=== PATIENT | female | born 1990 | race Caucasian/White ===

== ENCOUNTER 2018-10-15 05:53 | Inpatient (IN) ==
[2018-10-15] MEDS ORDERED: ceFAZolin 2,000 MG in PREMIX 1 EACH IV ONE (06:07)
[2018-10-15] MEDS ORDERED: CITRIC ACID/SODIUM CITRATE 30 ML UDCUP PO ONE (06:07)
[2018-10-15] MEDS ORDERED: FAMOTIDINE 20 MG/2 ML VIAL IV ONE (06:07)
[2018-10-15] MEDS ORDERED: LACTATED RINGERS 1,000 ML IV SCH ×3 (06:30→20:30)
[2018-10-15 06:36] LABS: Basophils # 0.1 10*3/uL (0.0-0.2); Basophils % 0.3 % (0.0-0.8); Eosinophils # 0.5 10*3/uL (0.0-0.87); Eosinophils % 2.6 % (0.00-10.9); Hematocrit 38.9 VOL% (35.7-47.0); Hemoglobin 12.9 GM/DL (12.0-16.0); Immature Granulocytes % 0.7 %; Immature Granulocytes Absolute 0.14 #; Lymphocytes # 5.5 10*3/uL (1.4-4.0); Mean Corpuscular HGB Conc 33.2 GM/DL (32-36); Mean Corpuscular Hemoglobin 30 PG (27-34); Mean Platelet Volume 11.4 FL (9.6-12.0); Neutrophils # 13.1 10*3/uL (1.4-7.4); Neutrophils % 64.4 % (38.7-73.9); Platelet Count 334 T/CUMM (130-400); Red Blood Count 4.37 MC/CUMM (3.8-5.5); White Blood Count 20.3 T/CUMM (4-12)
[2018-10-15 06:58] LABS: Platelet Estimate Normal
[2018-10-15 06:59] LABS: Anisocytosis Slight
[2018-10-15] MEDS ORDERED: miSOPROStol 200 MCG TABLET ONE (08:27)
[2018-10-15] MEDS ORDERED: OXYTOCIN/LR 20 UNIT/1,000 ML BAG IV ONE ×2 (08:28→10:08)
[2018-10-15] MEDS ORDERED: CARBOPROST TROMETHAMINE 250 MCG/ML AMP IM ONE (08:28)
[2018-10-15] MEDS ORDERED: TRANEXAMIC ACID 1,000 MG/10 ML VIAL ONE (08:28)
[2018-10-15] MEDS ORDERED: METHYLERGONOVINE 0.2 MG/1 ML AMP ONE (08:28)
[2018-10-15] MEDS ORDERED: OXYTOCIN 10 UNIT/ML VIAL ONE (08:29)
[2018-10-15 09:47] LABS: Apearance,Urine CLEAR (Clear); Bilirubin,Urine Negative (Negative); Blood, Urine Negative (Negative); Glucose,Urine (UA) Negative (Negative); Ketones,Urine Negative (Negative); Mucus,Urine Occasional /LPF (Occasional); Nitrite,Urine Negative (Negative); Protein,Urine Negative; RBC,Urine <1 /HPF (0-4); Squamous Epithelial Cell,Urine Occasional /HPF (0-10); Urine Color Straw (Yellow); Urine Specific Gravity 1.008 (1.001-1.035); Urine Urobilinogen < 2.0 EU/DL (0.2-1.0); WBC,Urine <1 /HPF (0-6)
[2018-10-15 09:52] LABS: Cord Venous Blood HCO3 22.9 MMOL/L; Cord Venous Blood PCO2 49.4 MMHG; Cord Venous Blood PO2 21.9
[2018-10-15] MEDS ORDERED: RHO(D) IMMUNE GLOBULIN 300 MCG SYRINGE IM ONE (10:08)
[2018-10-15] MEDS ORDERED: MAGNESIUM HYDROXIDE SUSP 30 ML UDCUP PO PRN (10:08)
[2018-10-15] MEDS ORDERED: ACETAMINOPHEN 325 MG TABLET PO PRN (10:08)
[2018-10-15] MEDS ORDERED: SIMETHICONE CHEW 80 MG TABLET PO PRN (10:08)
[2018-10-15] MEDS ORDERED: ONDANSETRON 4 MG/2 ML VIAL IV PRN (10:08)
[2018-10-15] MEDS ORDERED: diphenhydrAMINE 50 MG/1 ML VIAL IV ONE (10:51)
[2018-10-15] MEDS ORDERED: MORPHINE 10 MG/10 ML VIAL ONE (11:23)
[2018-10-15] MEDS ORDERED: BUPIVACAINE SPINAL 0.75% 2 ML AMP SPINAL ONE (11:23)
[2018-10-15] MEDS ORDERED: ONDANSETRON 4 MG/2 ML VIAL ONE (11:23)
[2018-10-15] MEDS ORDERED: PHENYLEPHRINE 1 MG/10 ML SYRINGE IV ONE (11:23)
[2018-10-15] MEDS: NICOTINE 7 MG/24 HR PATCH TRANSDERM SCH (15:32)
[2018-10-15] MEDS: ceFAZolin 1,000 MG in SYRINGE 1 EACH IV SCH (16:45)
[2018-10-15] MEDS: IBUPROFEN 800 MG TABLET PO PRN (17:05)
[2018-10-15 18:02] LABS: Hematocrit 35.8 VOL% (35.7-47.0); Hemoglobin 11.8 GM/DL (12.0-16.0)
[2018-10-15] MEDS ORDERED: diphenhydrAMINE 50 MG/1 ML VIAL ONE (19:18)
[2018-10-15] MEDS ORDERED: diphenhydrAMINE 50 MG/1 ML VIAL IV PRN (19:18)
[2018-10-15] MEDS ORDERED: hydrOXYzine HCL 25 MG/1 ML VIAL IM PRN (19:19)
[2018-10-15] MEDS: DOCUSATE SODIUM 100 MG CAPSULE PO SCH (21:43)
[2018-10-16] MEDS: ceFAZolin 1,000 MG in SYRINGE 1 EACH IV SCH (00:38)
[2018-10-16 05:12] LABS: Basophils # 0.1 10*3/uL (0.0-0.2); Basophils % 0.3 % (0.0-0.8); Eosinophils # 0.4 10*3/uL (0.0-0.87); Eosinophils % 1.9 % (0.00-10.9); Hematocrit 34.3 VOL% (35.7-47.0); Hemoglobin 11.1 GM/DL (12.0-16.0); Immature Granulocytes % 0.7 %; Immature Granulocytes Absolute 0.12 #; Lymphocytes # 3.7 10*3/uL (1.4-4.0); Lymphocytes % 20.6 % (21.3-54.2); Mean Corpuscular HGB Conc 32.4 GM/DL (32-36); Mean Corpuscular Hemoglobin 29 PG (27-34); Mean Corpuscular Volume 90.7 FL (87-102); Monocytes # 1.1 10*3/uL (0.11-0.8); Neutrophils # 12.8 10*3/uL (1.4-7.4); Neutrophils % 70.5 % (38.7-73.9); Platelet Count 325 T/CUMM (130-400); Red Blood Count 3.78 MC/CUMM (3.8-5.5); Red Cell Distribution Width 14.5 % (9.3-17.3); White Blood Count 18.2 T/CUMM (4-12)
[2018-10-16] MEDS: IBUPROFEN 800 MG TABLET PO PRN ×2 (05:30→13:07)
[2018-10-16] MEDS: MULTIVITAMIN (PRENATAL) TABLET PO SCH (08:50)
[2018-10-16] MEDS: DOCUSATE SODIUM 100 MG CAPSULE PO SCH ×3 (08:50→21:25)
[2018-10-16] MEDS: NICOTINE 7 MG/24 HR PATCH TRANSDERM SCH ×2 (08:50→14:46)
[2018-10-17 07:42] VITALS: BP 129/82
[2018-10-17] MEDS: IBUPROFEN 800 MG TABLET PO PRN (07:58)
[2018-10-17] MEDS: NICOTINE 7 MG/24 HR PATCH TRANSDERM SCH (09:04)
[2018-10-17] MEDS: DOCUSATE SODIUM 100 MG CAPSULE PO SCH (09:20)
[2018-10-17] MEDS: MULTIVITAMIN (PRENATAL) TABLET PO SCH (09:20)
[2018-10-17] MEDS ORDERED: DIPH/TET/ACEL PERT BOOSTER VACCINE 0.5 ML VIAL IM ONE (11:03)
== END 2018-10-17 13:05 | disposition home or self-care (01) | DRG 540 ==
LOC: N.LDOUT 05:53 → N.LD 05:57 → N.OB 12:40
PROVIDERS: ADMIT Obstetrics & Gynecology; ATTEND Obstetrics & Gynecology